=== PATIENT | male | born 1950 | race Two or more races ===

== ENCOUNTER → 2016-10-19 | Outpatient (CLI) | payer MEDICARE ==
--- NOTE | 2016-10-23 23:57 | ECWPNPC ---
PATIENT NAME: REFUGIO REICH : 1950 GENDER: MALE MRN: VISIT DATE: 10/19/2016 DISCHARGE DATE: 10/19/16 1639 VISIT LOCKED DATE TIME: PHYSICIAN: EFFIE ROMAN RESOURCE: EFFIE ROMAN REASON FOR APPOINTMENT 1. NECK PAIN HISTORY OF PRESENT ILLNESS NEW PATIENT CONSULT: WHEN DID YOUR PAIN FIRST START? . BRIEFLY DESCRIBE HOW YOUR PAIN STARTED? . HOW DOES YOUR PAIN CHANGE WITH TIME? . DOES YOUR PAIN AWAKEN YOU FROM SLEEP? . HOW MANY HOURS OF SLEEP DO YOU NORMALLY GET? . ANY DIAGNOSTIC TESTING? . FACILITY WHERE TESTS WERE DONE? ____. PAIN TREATMENT TREATMENT YES CANCER HAVE YOU EVER HAD ANY TYPE OF CANCER?NO NO. 66 YEAR OLD MALE PATIENT WITH HISTORY OF CHRONIC NECK PAIN. PATIENT DESCRIBES THE PAIN ACHING, TENDER, SORE, WITH THE PAIN COMING AND GOING WITH A PAIN SCORE OF 6/10. PATIENT STATES THAT THE PAIN STARTED ROUGHLY 3 MONTHS AGO AND HE DID NOT HAVE AN ACCIDENT. PATIENT REPORTS THAT BOTH OF HIS HANDS GO NUMB AT TIMES AND GETS HEADACHES FROM THE CHRONIC NECK PAIN. AT THIS TIME THE PATIENT REPORTS GETTING A HEADACHE ALMOST EVERYDAY. PATIENT IS CURRENTLY NOT USING ANYTHING FOR PAIN MANAGEMENT AT THIS TIME. MR. REICH STATES THAT ANY TYPE OF MOVEMENT INCREASES THE PAIN IN HIS CERVICAL AREA. PATIENT DENIES UNEXPLAINABLE WEIGHT LOSS, FEVER, CHILLS, NEW CHANGES ON HIS URINARY OR BOWEL CONTROL. PAIN SCREENING: PATIENT HAS A COMPLAINT OF ACUTE OR CHRONIC PAIN YES FALL RISK SCREENING: SCREENING :NO FALLS IN THE PAST YEAR PATEL INVENTORY: QUESTIONNAIRE ASSESSEDTBD SCORE VALUE CALCULATED TBD CURRENT MEDICATIONS TAKING METFORMIN HCL 1000 MG TABLET 1 TABLET WITH MEALS ORALLY TWICE A DAY TAKING LISINOPRIL 40 MG TABLET ORALLY ONCE DAILY TAKING OMEPRAZOLE 40 MG CAPSULE DELAYED RELEASE 1 CAPSULE ORALLY ONCE A DAY TAKING CLOPIDOGREL BISULFATE 75 MG TABLET 1 TABLET ORALLY ONCE A DAY TAKING GLYBURIDE 1.25 MG TABLET 1 TABLET WITH BREAKFAST OR THE FIRST MAIN MEAL OF THE DAY ORALLY ONCE A DAY TAKING VITAMIN D-3 1000 UNIT CAPSULE 1 CAPSULE ORALLY ONCE A DAY TAKING VITAMIN C 1000 MG TABLET CHEWABLE 1 TABLET ORALLY ONCE A DAY TAKING POTASSIUM GLUCONATE 595 MG TABLET ORALLY DAILY TAKING GAS-X 125 MG CAPSULE 1 CAPSULE AFTER MEALS AND AT BEDTIME NEEDED ORALLY FOUR TIMES A DAY TAKING ALLERGY RELIEF 10 MG TABLET 1 TABLET ORALLY ONCE A DAY TAKING PROAIR HFA 108 (90 BASE) MCG/ACT AEROSOL SOLUTION 2 PUFFS NEEDED INHALATION EVERY 4 HRS TAKING QVAR 40 MCG/ACT AEROSOL SOLUTION 1 PUFF INHALATION TWICE A DAY TAKING AMLODIPINE BESYLATE 2.5 MG TABLET 1 TABLET ORALLY ONCE A DAY MEDICATION LIST REVIEWED AND RECONCILED WITH THE PATIENT PAST MEDICAL HISTORY NO MEDICAL HISTORY. ALLERGIES ENVIRONMENTAL ALLERGIES SURGICAL HISTORY NO SURGICAL HISTORY DOCUMENTED. FAMILY HISTORY NO FAMILY HISTORY DOCUMENTED. SOCIAL HISTORY GENERAL: PAIN CLINIC PFS, CLERGY, PUBLIC HEALTH REFERRALS CLERGY REFERRAL NEEDED?NO WAS THE PROVIDER NOTIFIED OF ANY PERTINENT INFO?NO PFS REFERRAL NEEDED?NO PUBLIC HEALTH REFERRAL NEEDED?NO PSYCHOLOGICAL HX TREATMENTNO ALCOHOL OR DRUG TREATMENTNO PATIENT: ____. ADVANCED DIRECTIVES HEALTH CARE PROXY?NO POWER OF WEB OPERATIONS ADMINISTRATOR?NO SCREENING/ASSESSMENT TOOL NUTRITION ASSESSEDYES ARE YOU ON ANY SPECIAL DIET?NO ANY SIGNIFICANT CHANGES RELATED TO EATING, WEIGHT GAIN/LOSS, OR BOWEL HABITS?NO IF YES, IS YOUR PRIMARY CARE PROVIDER AWARE OF THIS?NO SPECIAL NEEDS LEVEL OF CARE? SELF, GLASSES: NO, CONTACTS: NO, HEARING AIDS: NO, DENTURES: NO, WALKER: NO, CANE: NO, WHEELCHAIR: NO, REFERRALS NEEDED: NO. TOBACCO USE ARE YOU A:NONSMOKER CAFFEINE CAFFEINE USE?NO RECREATIONAL DRUG USE DRUG USE?NO HOSPITALIZATION/MAJOR DIAGNOSTIC PROCEDURE NO HOSPITALIZATION HISTORY. REVIEW OF SYSTEMS CONSTITUTIONAL: ANY CHANGE IN YOUR MEDICAL CONDITION? NO . CHILLS NO . FEVER NO . INFECTION: DO YOU HAVE NEW INFECTIONS? NO . DO YOU HAVE HISTORY OF MRSA? NO . MUSCULOSKELETAL: ANY NEW PATTERNS OF PAIN OR NUMBNESS? NO . SYTEMIC LUPUS NO . GASTROENTEROLOGY: ANY NEW CHANGE IN BOWEL CONTROL? NO . BARRETTS ESOPHAGUS NO . CIRRHOSIS NO . HEPATITIS NO . LIVER FAILURE NO . ACID REFLUX YES, TAKES PRILOSEC . UNEXPLAINED WEIGHT LOSS NO . GENITOURINARY: ANY NEW CHANGE IN BLADDER CONTROL? NO . IS THERE A CHANCE YOU COULD BE ? NO . HEMATOLOGY/LYMPH: DO YOU TAKE ANY BLOOD THINNERS? (FOR EXAMPLE- COUMADIN, PLAVIX, AGGRENOX, PLATEL, PRADAXA, OR XARELTO) YES, PLAVIX . WHEN WAS YOUR LAST DOSE? DATE: . LOW PLATELET COUNT NO . SICKLE CELL DISEASE NO . VON WILLIEBRANDS NO . FACTOR V LEIDEN NO . THALLASEMIA NO . ANEMIA NO . EASY BRUISING NO . NEUROLOGY: HAVE YOU FALLEN IN THE PAST 6 MONTHS? NO . ANY NEW EXTREMITY NUMBNESS OR WEAKNESS? YES, HANDS . HEAD INJURY NO . DEMENTIA NO . CEREBRAL PALSY NO . MULTIPLE SCLEROSIS NO . DIZZINESS NO . HEADACHE INTERMITTENT, OCCIPITAL, POUNDING, INFREQUENT . STROKES YES, TIA 12/31/14 . VERTIGO NO . CARDIOLOGY: DO YOU HAVE A PACEMAKER OR DEFIBRILLATOR? NO . ANGINA NO . HEART ATTACK NO . HEART SURGERY NO . CONGESTIVE HEART FAILURE/FLUID OVERLOAD NO . CHEST PAIN NO . HIGH BLOOD PRESSURE YES, ON MEDICATION(S) . IRREGULAR HEART BEAT NO . RESPIRATORY: HAVE YOU BEEN SICK IN THE PAST WEEK? YES . FEVER YES . FLU LIKE SYMPTOMS? YES . CPAP NO . BYPAP NO . ASTHMA YES . EMPHYSEMA NO . CHRONIC LUNG DISEASES NO . SHORTNESS OF BREATH ON EXERTION YES . DO YOU USE ANY TYPE OF TOBACCO (SMOKE, SMOKELESS, CHEW)? NO . COUGH NO . SNORING NO . INTEGUMENTARY: DO YOU HAVE ANY RASHES OR OPEN SORES? YES . ALLERGIC/IMMUNO: ARE YOU ALLERGIC TO SHELLFISH OR IV DYE? NO . ANY NEW ALLERGIES? NO . PSYCHIATRIC: DO YOU HAVE THOUGHTS OF HURTING YOURSELF OR SOMEONE ELSE? NO . ARE YOU ABUSED, NEGLECTED, OR IN AN UNSAFE ENVIRONMENT? NO . ENDOCRINOLOGY: ARE YOU DIABETIC? YES . THYROID DISORDER NO . OTHER: DO YOU NEED ANY PRESCRIPTIONS? NO . IF YES, PLEASE LIST: ____ . ANY NEW PROBLEMS WITH YOUR MEDICATIONS? NO . WHEN DID YOU LAST EAT? ____ . WHEN DID YOU LAST DRINK? ____ . WHAT DID YOU LAST DRINK? ____ . NAME OF PERSON DRIVING YOU HOME? ____ . DO YOU HAVE ANY OTHER QUESTIONS OR CONCERNS NO . REVIEWED BY: PROVIDER: EFFIE ROMAN MD . VITAL SIGNS WT 208 LBS, HT 68 IN, BMI 31.62 INDEX, BP 169/87 MM HG, RR 16 /MIN, REVIEWED BY: VD. EXAMINATION : PATIENT IS ALERT O X 3 AND COOPERATIVE. TENDERNESS IN THE CERVICAL AREA AND PARASPINAL MUSCLE GROUP. BANDS OF TISSUE, RESTRICTION OF MOVEMENT AND PRESENCE OF TRIGGER POINTS IN THE CERVICAL AREA. PATIENT IS ABLE TO EXTEND THE NECK WITH ACHINESS. SIGNIFICANT PAIN WITH TILTING HEAD TO THE LEFT. PATIENT ABLE TO ABDUCT ARMS ABOVE SHOULDER LEVEL. MRI OF THE CERVICAL SPINE DONE ON 09/28/16 SHOWS MULTIPLE DISC BULGES WITH SPONDYLOSIS ALONG WITH A DISC EXTRUSION AT C6-C7. 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 REICH'S PAIN MANAGEMENT CASE. AT HIS TIME THE PATIENT WILL BEGIN TO USE TIZANIDINE TO SEE IF IT WILL AID WITH THE MUSCLE CRAMPS IN THE CERVICAL AREA. PATIENT WAS ADVISED TO STOP MEDICATION IS HE HAS ANY ADVERSE SIDE EFFECTS AND TO BE AWARE THAT THE MEDICATION MAY MAKE HIM TIRED. I WOULD LIKE TO REFER THE PATIENT TO DR. DHILLON FOR A SURGICAL CONSULT. IN THE MEANTIME DUE TO THE BANDS OF TISSUE IN THE CERVICAL AREA I BELIEVE THE PATIENT WOULD BENEFIT FROM TRIGGER POINT INJECTIONS IN THE CERVICAL AREA. PATIENT IS A CANDIDATE FOR LUMBAR FACET BLOCKS WELL BUT WE WOULD NEED TO OBTAIN A CLEARANCE TO STOP THE PATIENT'S BLOOD THINNER. WE DISCUSSED THE RISKS, BENEFITS, AND ALTERNATIVES OF THE INJECTION AND THE PATIENT WOULD LIKE TO PROCEED AT THIS TIME. INSTRUCTIONS WERE GIVEN, QUESTIONS WERE ANSWERED, PATIENT REPORTS UNDERSTANDING AND AGREES WITH THE PLAN. I, JACKSON NEIL, DOCUMENTED THE ABOVE INFORMATION ACTING A SCRIBE FOR DR. ROMAN. I HAVE REVIEWED THE ABOVE DOCUMENT, WRITTEN BY JACKSON MOTTA AND I VERIFY THAT IT IS ACCURATE. DEAR DR. FLYNN:THANK YOU FOR YOUR KIND REFERRAL OF MR. REICH. YOU WANT TO DISCUSS HER CASE WITH ME PLEASE CALL ME AT THE PAIN CENTER AT [phone]. SINCERELY,EFFIE ROMAN, [facility]. OTHERS START TIZANIDINE HCL TABLET, 2 MG, 1 TABLET NEEDED, ORALLY FOR SPASMS AND PAIN, Q 6 HRS MDD3, 30 DAY(S), 75, REFILLS 1 PREVENTIVE MEDICINE PAIN CLINIC TEACHING: PROCEDURE TEACHING PATIENT DECLINED PRINTED INFORMATION ON TPI STATING HE HAS HAD THEM IN THE PAST SO HE IS FAMILIAR WITH IT.. PROCEDURE CODES G8427 DOC MEDS VERIFIED W/PT OR RE G8730 PAIN ASSESS POS TOOL F/U PLAN DOC FOLLOW UP TPI AFTER APPROVAL ELECTRONICALLY SIGNED BY EFFIE ROMAN MD ON 10/23/2016 AT 08:22 PM EST DISCLAIMER : THIS IS A VISIT SUMMARY EXTRACTED FROM THE [employer] CHART. IT IS NOT A COPY OF THE [employer] PROGRESS NOTE. MTDD
== END ==
LOC: M PAIN 13:20
PROVIDERS: ATTEND Anesthesiology
DX: M79.1 Myalgia (principal); M50.023 Cervical disc disorder at C6-C7 level with myelopathy; Z79.899 Other long term (current) drug therapy; Z79.84 Long term (current) use of oral hypoglycemic drugs; Z91.09 Other allergy status, other than to drugs and biological substances

== ENCOUNTER → 2016-10-26 | Outpatient (CLI) | payer MEDICARE, BC ==
[~2016-10-26] MED LIST: BUPIVACAINE HCL 0.25% 10 ML VIAL As Ordered ONE; BUPIVACAINE HCL 0.25% 30 ML VIAL As Ordered ONE; TRIAMCINOLONE ACETONIDE SUSP 40 MG/ML VIAL (J3301) As Ordered ONE
--- NOTE | 2016-10-28 23:42 | ECWPNPC ---
PATIENT NAME: REFUGIO REICH : 1950 GENDER: MALE VISIT DATE: 10/26/2016 DISCHARGE DATE: 10/26/16 1106 VISIT LOCKED DATE TIME: PHYSICIAN: EFFIE ROMAN RESOURCE: EFFIE ROMAN REASON FOR APPOINTMENT 1. TPI HISTORY OF PRESENT ILLNESS HISTORY OF PRESENT ILLNESS: PAIN THE PATIENT DESCRIBES THE PAIN... FALL RISK SCREENING: SCREENING :NO FALLS IN THE PAST YEAR CURRENT MEDICATIONS TAKING TIZANIDINE HCL 2 MG TABLET 1 TABLET NEEDED ORALLY FOR SPASMS AND PAIN Q 6 HRS MDD3, NOTES: 10/25/162099 TAKING METFORMIN HCL 1000 MG TABLET 1 TABLET WITH MEALS ORALLY TWICE A DAY, NOTES: 10/25/162099 TAKING LISINOPRIL 40 MG TABLET ORALLY ONCE DAILY, NOTES: 10/25/162099 TAKING OMEPRAZOLE 40 MG CAPSULE DELAYED RELEASE 1 CAPSULE ORALLY ONCE A DAY, NOTES: 10/26/16499 TAKING CLOPIDOGREL BISULFATE 75 MG TABLET 1 TABLET ORALLY ONCE A DAY, NOTES: 10/19/16 TAKING GLYBURIDE 1.25 MG TABLET 1 TABLET WITH BREAKFAST OR THE FIRST MAIN MEAL OF THE DAY ORALLY ONCE A DAY, NOTES: 10/25/162099 TAKING VITAMIN D-3 1000 UNIT CAPSULE 1 CAPSULE ORALLY ONCE A DAY, NOTES: 10/26/16499 TAKING POTASSIUM GLUCONATE 595 MG TABLET ORALLY DAILY, NOTES: 10/25/162099 TAKING GAS-X 125 MG CAPSULE 1 CAPSULE AFTER MEALS AND AT BEDTIME NEEDED ORALLY FOUR TIMES A DAY, NOTES: 10/25/162099 TAKING ALLERGY RELIEF 10 MG TABLET 1 TABLET ORALLY ONCE A DAY, NOTES: 10/26/16499 TAKING PROAIR HFA 108 (90 BASE) MCG/ACT AEROSOL SOLUTION 2 PUFFS NEEDED INHALATION EVERY 4 HRS, NOTES: NONE RECENT TAKING QVAR 40 MCG/ACT AEROSOL SOLUTION 1 PUFF INHALATION TWICE A DAY, NOTES: 10/26/16499 TAKING AMLODIPINE BESYLATE 2.5 MG TABLET 1 TABLET ORALLY ONCE A DAY, NOTES: 10/25/162099 NOT-TAKING VITAMIN C 1000 MG TABLET CHEWABLE 1 TABLET ORALLY ONCE A DAY MEDICATION LIST REVIEWED AND RECONCILED WITH THE PATIENT ALLERGIES ENVIRONMENTAL ALLERGIES SOCIAL HISTORY GENERAL: TOBACCO USE ARE YOU A:NONSMOKER LEARNING BARRIERS / SPECIAL NEEDS ORIENTED TO PLAN OF CARE: PATIENT, PAIN MANAGEMENT PATIENT, ORIENTED TO PLAN OF CARE: PATIENT, PAIN MANAGEMENT PATIENT. NEW PATIENT PAIN DIARY TODAY'S VISITNOTES FROM 0-10, WHAT LEVEL IS YOUR PAIN TODAY?0 PAIN CLINIC PFS, CLERGY, PUBLIC HEALTH REFERRALS PFS REFERRAL NEEDED?NO CLERGY REFERRAL NEEDED?NO PUBLIC HEALTH REFERRAL NEEDED?NO WAS THE PROVIDER NOTIFIED OF ANY PERTINENT INFO?NO PFS REFERRAL NEEDED?NO CLERGY REFERRAL NEEDED?NO PUBLIC HEALTH REFERRAL NEEDED?NO WAS THE PROVIDER NOTIFIED OF ANY PERTINENT INFO?NO REVIEW OF SYSTEMS CONSTITUTIONAL: ANY CHANGE IN YOUR MEDICAL CONDITION? NO . CHILLS NO . FEVER NO . INFECTION: DO YOU HAVE NEW INFECTIONS? NO . DO YOU HAVE HISTORY OF MRSA? NO . MUSCULOSKELETAL: ANY NEW PATTERNS OF PAIN OR NUMBNESS? NO . GASTROENTEROLOGY: ANY NEW CHANGE IN BOWEL CONTROL? NO . GENITOURINARY: ANY NEW CHANGE IN BLADDER CONTROL? NO . IS THERE A CHANCE YOU COULD BE ? NO . HEMATOLOGY/LYMPH: DO YOU TAKE ANY BLOOD THINNERS? (FOR EXAMPLE- COUMADIN, PLAVIX, AGGRENOX, PLATEL, PRADAXA, OR XARELTO) YES, CLOPIDOGREL . WHEN WAS YOUR LAST DOSE? DATE: TIME: 10/19/16 . NEUROLOGY: HAVE YOU FALLEN IN THE PAST 6 MONTHS? NO . ANY NEW EXTREMITY NUMBNESS OR WEAKNESS? NO . CARDIOLOGY: DO YOU HAVE A PACEMAKER OR DEFIBRILLATOR? NO . RESPIRATORY: HAVE YOU BEEN SICK IN THE PAST WEEK? YES LOW GRADE FEVER, CHILLS ACHES AND PAINS ALL OVER THIS PAST WEEK. DR. ROMAN AWARE . FEVER NO . FLU LIKE SYMPTOMS? NO . COUGH YES, OCC. RAISING YELLOW MUCUS . INTEGUMENTARY: DO YOU HAVE ANY RASHES OR OPEN SORES? NO . ALLERGIC/IMMUNO: ARE YOU ALLERGIC TO SHELLFISH OR IV DYE? NO . ANY NEW ALLERGIES? NO . PSYCHIATRIC: DO YOU HAVE THOUGHTS OF HURTING YOURSELF OR SOMEONE ELSE? NO . ARE YOU ABUSED, NEGLECTED, OR IN AN UNSAFE ENVIRONMENT? NO . ENDOCRINOLOGY: ARE YOU DIABETIC? YES FSBS THIS A.M. 123 . OTHER: DO YOU NEED ANY PRESCRIPTIONS? NO . IF YES, PLEASE LIST: ____ . ANY NEW PROBLEMS WITH YOUR MEDICATIONS? NO . WHEN DID YOU LAST EAT? ____10/25/16 1700 . WHEN DID YOU LAST DRINK? ____10/26/16 0500 . WHAT DID YOU LAST DRINK? 8 OZ OF WATER, 8 OZ GA . NAME OF PERSON DRIVING YOU HOME? ____WIFE, AMY . DO YOU HAVE ANY OTHER QUESTIONS OR CONCERNS NO . REVIEWED BY: PROVIDER: . VITAL SIGNS WT 203.8 LBS, HT 68 IN, BMI 30.98 INDEX, BP 146/80 MM HG, HR 82 /MIN, RR 16 /MIN, TEMP 97.4 F, OXYGEN SAT % 98, NA INITIALS TL 0950, REVIEWED BY: AD. ASSESSMENTS MYALGIA - M79.1 (PRIMARY) PROCEDURES PN TRIGGER POINT INJECTION WITH STEROIDS PRE PROCEDURE DIAGNOSIS 1. MYALGIA 2. PAIN AT BILATERAL CERVICAL AREA AND BILATERAL NECK AREA POST PROCEDURE DIAGNOSIS 1. MYALGIA 2. PAIN AT BILATERAL CERVICAL AREA AND BILATERAL SHOULDER AREA PROCEDURE TRIGGER POINT INJECTION AT BILATERAL CERVICAL AREA AND BILATERAL SHOULDER AREA SURGEON DR. EFFIE ROMAN [employer]OP MANAGER NONE ANESTHESIA LOCAL PRE PROCEDURE NOTE THE PATIENT HAS A HISTORY OF CHRONIC PAIN AT THE RIGHT AND LEFT CERVICAL AREA AND RIGHT AND LEFT SHOULDER AREA. I EVALUATE THE PATIENT AND REVIEWED THE CHART. THERE IS EVIDENCE OF BANDS OF TISSUE WITH RESTRICTION OF MOVEMENT AND PRESENCE OF TRIGGER POINT AT THE AFFECTED AREA. I WENT OVER THE RISKS, ALTERNATIVES, AND BENEFITS ASSOCIATED WITH THIS PROCEDURE. THE PATIENT WOULD LIKE TO PROCEED AND GIVE CONSENT TO PERFORMED THE PROCEDURE. THE PATIENT DENIES UNEXPLAINABLE WEIGHT LOSS, FEVER, CHILLS, OR NEW CHANGES IN URINARY OR BOWEL CONTROL DESCRIPTION OF PROCEDURE THE PATIENT WAS BROUGHT TO THE PROCEDURE ROOM AND PLACED IN THE SITTING POSITION. THE AREA WAS CLEANED WITH ALCOHOL. THE PROCEDURE WAS DONE USING ASEPTIC STERILE TECHNIQUE. I CHECKED LATERALITY AND THE LEVEL WHERE THE PROCEDURE WAS GOING TO BE PERFORMED WITH THE PATIENT AND THE SUPPORTING STAFF AT THE MOMENT OF THE TIME OUT IN THE PROCEDURE ROOM. USING A 25-GAUGE NEEDLE, TRIGGER POINTS WERE INJECTED AT THE RIGHT AND LEFT CERVICAL AREA AND RIGHT AND LEFT SHOULDER AREA WITH A TOTAL OF 40 ML OF BUPIVACAINE 0.25% AND KENALOG 40 MG. THERE WAS NO EVIDENCE OF BLOOD, PARESTHESIA OR CEREBROSPINAL FLUID DURING THE PROCEDURE. THE PATIENT WAS SENT TO THE RECOVERY ROOM. THE PATIENT WAS MOVING THE EXTREMITIES AND DOING WELL. THERE WAS NO COMPLICATION DURING THE PROCEDURE POST PROCEDURE NOTE THE PATIENT WILL BE SEEN IN A FOLLOW UP IN THE NEXT FEW WEEKS. INSTRUCTIONS WERE GIVEN, QUESTIONS WERE ANSWERED, AND THE PATIENT EXPRESSED UNDERSTANDING AND AGREES WITH THE PLAN. I, AJCKSON NEIL, DOCUMENTED THE ABOVE INFORMATION ACTING A SCRIBE FOR DR. ROMAN. I, DR. ROMAN, HAVE REVIEWED THE ABOVE DOCUMENT, SCRIBED BY JACKSON NEIL, AND I VERIFY THAT IT IS ACCURATE PROCEDURE CODES 04538 INJECT TRIGGER POINTS 3/> FOLLOW UP 3 WEEKS ELECTRONICALLY SIGNED BY EFFIE ROMAN MD ON 10/28/2016 AT 01:39 PM EST DISCLAIMER : THIS IS A VISIT SUMMARY EXTRACTED FROM THE [employer] CHART. IT IS NOT A COPY OF THE [employer] PROGRESS NOTE. MTDD
== END ==
LOC: M PAIN 10:00
PROVIDERS: ATTEND Anesthesiology
DX: G89.29 Other chronic pain (principal); M79.1 Myalgia; M54.2 Cervicalgia; M25.511 Pain in right shoulder; M25.512 Pain in left shoulder; E11.9 Type 2 diabetes mellitus without complications; J30.89 Other allergic rhinitis; Z79.01 Long term (current) use of anticoagulants; Z79.84 Long term (current) use of oral hypoglycemic drugs; Z79.899 Other long term (current) drug therapy
CPT/HCPCS: 20553; J3301

== ENCOUNTER → 2016-11-11 | Outpatient (CLI) | payer MEDICARE, BC ==
--- NOTE | 2016-11-12 00:27 | ECWPNPC ---
PATIENT NAME: REFUGIO REICH : 1950 GENDER: MALE VISIT DATE: 11/11/2016 DISCHARGE DATE: 11/11/16 1206 VISIT LOCKED DATE TIME: PHYSICIAN: KATHIA ARTEAGA RESOURCE: KATHIA ARTEAGA REASON FOR APPOINTMENT 1. POST PROCEDURE HISTORY OF PRESENT ILLNESS HISTORY OF PRESENT ILLNESS: HERE FOR POST PROCEDURE F/U.HAD TPI IN NECK ON10-26-16.REPORTS ONE WEEK OF IMPROVEMENT THEN PAIN HAS RETURNED TO BASELINE.DESCRIBES INTERMITTENT SEVERE NECK PAIN THAT RADIATES INTO HEADACHE.RATING PAIN VAS 8/10.DESCRIBES PAIN ACHING,THROBBING AND SORE.TRIALED ON ZANAFLEX ONE MOS. AGO AND STATES IT DIDNT HELP.SAW MIMA CORTÉS AT [facility] PER DR. ABEL ARCE WHO FEELS ITS MAINLY ARTHRITIC IN NATURE AND REFERRED BACK TO [place] TO CONSIDER CERVICAL FACET BLOCKS. FALL RISK SCREENING: SCREENING :NO FALLS IN THE PAST YEAR CURRENT MEDICATIONS TAKING TIZANIDINE HCL 2 MG TABLET 1 TABLET NEEDED ORALLY FOR SPASMS AND PAIN Q 6 HRS MDD3, NOTES: 10/25/162099 TAKING METFORMIN HCL 1000 MG TABLET 1 TABLET WITH MEALS ORALLY TWICE A DAY, NOTES: 10/25/162099 TAKING LISINOPRIL 40 MG TABLET ORALLY ONCE DAILY, NOTES: 10/25/162099 TAKING OMEPRAZOLE 40 MG CAPSULE DELAYED RELEASE 1 CAPSULE ORALLY ONCE A DAY, NOTES: 10/26/16499 TAKING CLOPIDOGREL BISULFATE 75 MG TABLET 1 TABLET ORALLY ONCE A DAY, NOTES: 10/19/16 TAKING GLYBURIDE 1.25 MG TABLET 1 TABLET WITH BREAKFAST OR THE FIRST MAIN MEAL OF THE DAY ORALLY ONCE A DAY, NOTES: 10/25/162099 TAKING VITAMIN D-3 1000 UNIT CAPSULE 1 CAPSULE ORALLY ONCE A DAY, NOTES: 10/26/16 050 TAKING POTASSIUM GLUCONATE 595 MG TABLET ORALLY DAILY, NOTES: 10/25/162099 TAKING GAS-X 125 MG CAPSULE 2 CAPSULE AFTER MEALS AND AT BEDTIME NEEDED ORALLY DAILY, NOTES: 10/25/162099 TAKING ALLERGY RELIEF 10 MG TABLET 1 TABLET ORALLY ONCE A DAY, NOTES: 10/26/16 050 TAKING PROAIR HFA 108 (90 BASE) MCG/ACT AEROSOL SOLUTION 2 PUFFS NEEDED INHALATION EVERY 4 HRS, NOTES: NONE RECENT TAKING QVAR 40 MCG/ACT AEROSOL SOLUTION 1 PUFF INHALATION TWICE A DAY, NOTES: 10/26/16 0500 TAKING AMLODIPINE BESYLATE 2.5 MG TABLET 1 TABLET ORALLY ONCE A DAY, NOTES: 10/25/16 2100 NOT-TAKING VITAMIN C 1000 MG TABLET CHEWABLE 1 TABLET ORALLY ONCE A DAY MEDICATION LIST REVIEWED AND RECONCILED WITH THE PATIENT ALLERGIES ENVIRONMENTAL ALLERGIES SOCIAL HISTORY GENERAL: TOBACCO USE ARE YOU A:NONSMOKER LEARNING BARRIERS / SPECIAL NEEDS ORIENTED TO PLAN OF CARE: PATIENT, PAIN MANAGEMENT PATIENT, ORIENTED TO PLAN OF CARE: PATIENT, PAIN MANAGEMENT PATIENT. NEW PATIENT PAIN DIARY TODAY'S VISITNOTES FROM 0-10, WHAT LEVEL IS YOUR PAIN TODAY?0 PAIN CLINIC PFS, CLERGY, PUBLIC HEALTH REFERRALS PFS REFERRAL NEEDED?NO CLERGY REFERRAL NEEDED?NO PUBLIC HEALTH REFERRAL NEEDED?NO WAS THE PROVIDER NOTIFIED OF ANY PERTINENT INFO?NO PFS REFERRAL NEEDED?NO CLERGY REFERRAL NEEDED?NO PUBLIC HEALTH REFERRAL NEEDED?NO WAS THE PROVIDER NOTIFIED OF ANY PERTINENT INFO?NO REVIEW OF SYSTEMS CONSTITUTIONAL: ANY CHANGE IN YOUR MEDICAL CONDITION? NO . RECENT ILLNESS DENIES . CHILLS NO . FEVER NO . WEIGHT LOSS DENIES . INFECTION: DO YOU HAVE NEW INFECTIONS? NO . DO YOU HAVE HISTORY OF MRSA? NO . MUSCULOSKELETAL: ANY NEW PATTERNS OF PAIN OR NUMBNESS? NO . GASTROENTEROLOGY: ANY NEW CHANGE IN BOWEL CONTROL? NO . GENITOURINARY: ANY NEW CHANGE IN BLADDER CONTROL? NO . IS THERE A CHANCE YOU COULD BE ? NO . HEMATOLOGY/LYMPH: DO YOU TAKE ANY BLOOD THINNERS? (FOR EXAMPLE- COUMADIN, PLAVIX, AGGRENOX, PLATEL, PRADAXA, OR XARELTO) YES PLAVIX . WHEN WAS YOUR LAST DOSE? DATE: TIME: . NEUROLOGY: HAVE YOU FALLEN IN THE PAST 6 MONTHS? NO . ANY NEW EXTREMITY NUMBNESS OR WEAKNESS? NO . CARDIOLOGY: DO YOU HAVE A PACEMAKER OR DEFIBRILLATOR? NO . CHEST PAIN DENIES . SHORTNESS OF BREATH DENIES . RESPIRATORY: HAVE YOU BEEN SICK IN THE PAST WEEK? NO . FEVER NO . FLU LIKE SYMPTOMS? NO . COUGH NO, DENIES . SHORTNESS OF BREATH DENIES . INTEGUMENTARY: DO YOU HAVE ANY RASHES OR OPEN SORES? NO . ALLERGIC/IMMUNO: ARE YOU ALLERGIC TO SHELLFISH OR IV DYE? NO . ANY NEW ALLERGIES? NO . PSYCHIATRIC: DO YOU HAVE THOUGHTS OF HURTING YOURSELF OR SOMEONE ELSE? NO . ARE YOU ABUSED, NEGLECTED, OR IN AN UNSAFE ENVIRONMENT? NO . ENDOCRINOLOGY: ARE YOU DIABETIC? YES . OTHER: DO YOU NEED ANY PRESCRIPTIONS? NO . IF YES, PLEASE LIST: ____ . ANY NEW PROBLEMS WITH YOUR MEDICATIONS? NO . WHEN DID YOU LAST EAT? ____ . WHEN DID YOU LAST DRINK? ____ . WHAT DID YOU LAST DRINK? ____ . NAME OF PERSON DRIVING YOU HOME? ____ . DO YOU HAVE ANY OTHER QUESTIONS OR CONCERNS YES PAIN IS RECURRING IN NECK WITH HEADACHES ALSO. . REVIEWED BY: PROVIDER: KATHIA ESPINOZA . VITAL SIGNS WT 202.4 LBS, HT 68 IN, BMI 30.77 INDEX, BP 155/71 MM HG, HR 78 /MIN, RR 16 /MIN, TEMP 97.9 F, OXYGEN SAT % 95%, NA INITIALS SC 11:09, REVIEWED BY: MLF. EXAMINATION GENERAL EXAMINATION: LUNGS:LUNG SOUNDS ARE CLEAR. HEART:HEART RATE REGULAR. MUSCULOSKELETAL:*, MUSCLE STRENGTH TESTING 5/5 BILATERAL UPPER EXTREMITIES.PALPATION: POSITIVE FOR PAIN OVER C SPINE. POSITIVE FOR PAIN OVER C PARASPINALS, SPECIFIC TENDERNESS OVER C2/3-C3/4 CERVICAL FACET REGION WITH PALPATION.. DIAGNOSTIC:MRI [id number].. 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 PREVENTIVE MEDICINE PAIN CLINIC TEACHING: MEDICATIONS PRINTED HANDOUT GIVEN/REVIEWED WITH PT FOR ROBAXIN. PROCEDURE CODES FA211 ESTABILISHED PATIENT [facility] FACILITY CHARGE G8730 PAIN ASSESS POS TOOL F/U PLAN DOC G8427 DOC MEDS VERIFIED W/PT OR RE DISPOSITION & COMMUNICATION FOLLOW UP 2WKS POST (REASON: SEND STOP PLAVIX TO DR. FLYNN-STOP PLAVIX X7 DAYS AND SCHEDULE DAY 8BILAT.C3/4-4/5) ELECTRONICALLY SIGNED BY ALEXIS INGRAM ON 11/11/2016 AT 01:39 PM EST DISCLAIMER : THIS IS A VISIT SUMMARY EXTRACTED FROM THE [employer] CHART. IT IS NOT A COPY OF THE [employer] PROGRESS NOTE. VICKY
== END ==
LOC: M PAIN 11:20
PROVIDERS: ATTEND Nurse Practitioner Family
DX: Z09 Encounter for follow-up examination after completed treatment for conditions other than malignant neoplasm (principal); G89.29 Other chronic pain; M47.22 Other spondylosis with radiculopathy, cervical region; M79.1 Myalgia; J30.89 Other allergic rhinitis; E11.9 Type 2 diabetes mellitus without complications; Z79.01 Long term (current) use of anticoagulants; Z79.84 Long term (current) use of oral hypoglycemic drugs; Z79.899 Other long term (current) drug therapy

== ENCOUNTER → 2017-01-12 | Outpatient (CLI) | payer MEDICARE, BC ==
--- NOTE | 2017-01-13 00:21 | ECWPNPC ---
PATIENT NAME: REFUGIO REICH : 1950 GENDER: MALE VISIT DATE: 01/12/2017 DISCHARGE DATE: 01/12/17 0944 VISIT LOCKED DATE TIME: PHYSICIAN: KATHIA ARTEAGA RESOURCE: KATHIA ARTEAGA REASON FOR APPOINTMENT 1. POST INJ HISTORY OF PRESENT ILLNESS HISTORY OF PRESENT ILLNESS: HERE FOR POST PROCEDURE F/U.HAD BILATERAL CERVICAL C5/6-C6/7 BLOCKS ON 12-26-16.REPORTS 100 % IMPROVEMENT IN PAIN THAT CONTINUES TODAY.RATING AIN VAS 0/10.REPORTING LESS HEADAHE PAIN.HAS NOT NEEDED TO TAKE ROBAXIN.STATES ROBAXIN WAS VERY HELPFUL WITH SEVERE HEADACHE PAIN. FALL RISK SCREENING: SCREENING :NO FALLS IN THE PAST YEAR CURRENT MEDICATIONS TAKING METFORMIN HCL 1000 MG TABLET 1 TABLET WITH MEALS ORALLY TWICE A DAY TAKING LISINOPRIL 40 MG TABLET ORALLY ONCE DAILY TAKING OMEPRAZOLE 40 MG CAPSULE DELAYED RELEASE 1 CAPSULE ORALLY ONCE A DAY TAKING CLOPIDOGREL BISULFATE 75 MG TABLET 1 TABLET ORALLY ONCE A DAY TAKING GLYBURIDE 1.25 MG TABLET 1 TAB ORALLY BID TAKING VITAMIN D-3 1000 UNIT CAPSULE 1 CAPSULE ORALLY BID TAKING POTASSIUM GLUCONATE 595 MG TABLET ORALLY DAILY TAKING GAS-X 125 MG CAPSULE 2 CAPSULE AFTER MEALS AND AT BEDTIME NEEDED ORALLY DAILY TAKING ALLERGY RELIEF 10 MG TABLET 1 TABLET ORALLY ONCE A DAY TAKING PROAIR HFA 108 (90 BASE) MCG/ACT AEROSOL SOLUTION 2 PUFFS NEEDED INHALATION EVERY 4 HRS TAKING QVAR 40 MCG/ACT AEROSOL SOLUTION 1 PUFF INHALATION TWICE A DAY TAKING AMLODIPINE BESYLATE 2.5 MG TABLET 1 TABLET ORALLY ONCE A DAY TAKING VITAMIN B-12 500 MCG TABLET 2 TABLETS ORALLY ONCE A DAY TAKING ROBAXIN-750 750 MG TABLET 1 TABLET ORALLY Q8H PRN NOT-TAKING TIZANIDINE HCL 2 MG TABLET 1 TABLET NEEDED ORALLY FOR SPASMS AND PAIN Q 6 HRS MDD3 NOT-TAKING VITAMIN C 1000 MG TABLET CHEWABLE 1 TABLET ORALLY ONCE A DAY MEDICATION LIST REVIEWED AND RECONCILED WITH THE PATIENT PAST MEDICAL HISTORY DIABETES HTN BACK AND NECK PIAN RIGHT SHOULDER PAIN CVA X 2 ASTHMA ACID REFLUX ALLERGIES ENVIRONMENTAL ALLERGIES LYRICA: THROAT TIGHTNESS: ALLERGY STATINS: THROAT TIGHTNESS: ALLERGY SOCIAL HISTORY GENERAL: PAIN CLINIC PFS, CLERGY, PUBLIC HEALTH REFERRALS CLERGY REFERRAL NEEDED?NO WAS THE PROVIDER NOTIFIED OF ANY PERTINENT INFO?NO PFS REFERRAL NEEDED?NO PUBLIC HEALTH REFERRAL NEEDED?NO PATIENT: ____. REVIEW OF SYSTEMS CONSTITUTIONAL: ANY CHANGE IN YOUR MEDICAL CONDITION? NO . CHILLS NO . FEVER NO . INFECTION: DO YOU HAVE NEW INFECTIONS? NO . DO YOU HAVE HISTORY OF MRSA? NO . MUSCULOSKELETAL: ANY NEW PATTERNS OF PAIN OR NUMBNESS? NO . GASTROENTEROLOGY: ANY NEW CHANGE IN BOWEL CONTROL? NO . GENITOURINARY: ANY NEW CHANGE IN BLADDER CONTROL? NO . IS THERE A CHANCE YOU COULD BE ? NO . HEMATOLOGY/LYMPH: DO YOU TAKE ANY BLOOD THINNERS? (FOR EXAMPLE- COUMADIN, PLAVIX, AGGRENOX, PLATEL, PRADAXA, OR XARELTO) YES, PLAVIX . WHEN WAS YOUR LAST DOSE? DATE: TIME: 01/12/17409 . NEUROLOGY: HAVE YOU FALLEN IN THE PAST 6 MONTHS? NO . ANY NEW EXTREMITY NUMBNESS OR WEAKNESS? NO . CARDIOLOGY: DO YOU HAVE A PACEMAKER OR DEFIBRILLATOR? NO . RESPIRATORY: HAVE YOU BEEN SICK IN THE PAST WEEK? NO . FEVER NO . FLU LIKE SYMPTOMS? NO . COUGH NO . INTEGUMENTARY: DO YOU HAVE ANY RASHES OR OPEN SORES? NO . ALLERGIC/IMMUNO: ARE YOU ALLERGIC TO SHELLFISH OR IV DYE? NO . ANY NEW ALLERGIES? NO . PSYCHIATRIC: DO YOU HAVE THOUGHTS OF HURTING YOURSELF OR SOMEONE ELSE? NO . ARE YOU ABUSED, NEGLECTED, OR IN AN UNSAFE ENVIRONMENT? NO . ENDOCRINOLOGY: ARE YOU DIABETIC? YES . OTHER: DO YOU NEED ANY PRESCRIPTIONS? YES . IF YES, PLEASE LIST: ROBAXIN . ANY NEW PROBLEMS WITH YOUR MEDICATIONS? NO . WHEN DID YOU LAST EAT? ____ . WHEN DID YOU LAST DRINK? ____ . WHAT DID YOU LAST DRINK? ____ . NAME OF PERSON DRIVING YOU HOME? ____ . DO YOU HAVE ANY OTHER QUESTIONS OR CONCERNS NO . REVIEWED BY: PROVIDER: KATHIA ESPINOZA . VITAL SIGNS WT 202 LBS, HT 68 IN, BMI 30.71 INDEX, BP 138/72 MM HG, HR 98 /MIN, RR 18 /MIN, TEMP 99 F,1 F, OXYGEN SAT % 96, NA INITIALS KG 903, REVIEWED BY: AD. EXAMINATION GENERAL EXAMINATION: GENERAL APPEARANCE:NO ACUTE DISTRESS. LUNGS:LUNG MORALEZ ARE CLEAR TO AUSCULTATION BILATERALLY. GOOD MOVEMENT OF AIR. HEART:S1, S2 IN A REGULAR RATE AND RHYTHM. NO SIGNIFICANT MURMURS, RUBS OR GALLOPS NOTED. CERVICAL SPINE/NECK: RANGE OF MOTION OF NECK:NORMAL IN ALL DIRECTIONS. MOTOR STRENGTH:NORMAL. VERTEBRAL SPINE TENDERNESS:ABSENT. PARASPINAL MUSCLE SPASM:ABSENT BILATERALLY. TRAPEZIUS TENDERNESS:ABSENT BILATERALLY. 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 PROCEDURE CODES G8730 PAIN ASSESS POS TOOL F/U PLAN DOC G8427 DOC MEDS VERIFIED W/PT OR RE DISPOSITION & COMMUNICATION FOLLOW UP 2 MONTHS ELECTRONICALLY SIGNED BY ALEXIS INGRAM ON 01/12/2017 AT 04:43 PM EDT DISCLAIMER : THIS IS A VISIT SUMMARY EXTRACTED FROM THE [employer] CHART. IT IS NOT A COPY OF THE [employer] PROGRESS NOTE. VICKY
== END ==
LOC: M PAIN 09:00
PROVIDERS: ATTEND Nurse Practitioner Family
DX: M47.22 Other spondylosis with radiculopathy, cervical region (principal); M79.1 Myalgia; Z79.84 Long term (current) use of oral hypoglycemic drugs; Z79.899 Other long term (current) drug therapy; E11.9 Type 2 diabetes mellitus without complications; I10 Essential (primary) hypertension; M54.5 Low back pain; M54.2 Cervicalgia; K21.9 Gastro-esophageal reflux disease without esophagitis; J45.909 Unspecified asthma, uncomplicated; Z88.8 Allergy status to other drugs, medicaments and biological substances; Z91.09 Other allergy status, other than to drugs and biological substances

== ENCOUNTER → 2017-02-08 | Outpatient (CLI) | payer MEDICARE, BC ==
--- NOTE | 2017-03-02 01:03 | ECWPNPC ---
PATIENT NAME: REFUGIO REICH : 1950 GENDER: MALE VISIT DATE: 02/08/2017 DISCHARGE DATE: 02/08/17 1243 VISIT LOCKED DATE TIME: PHYSICIAN: KATHIA ARTEAGA RESOURCE: KATHIA ARTEAGA REASON FOR APPOINTMENT 1. INCREASED PAIN HISTORY OF PRESENT ILLNESS HISTORY OF PRESENT ILLNESS: PATIENT IS SEEN ON AN URGENT BASIS DUE TO INCREASE IN NECK PAIN.WAS DOING WELL AFTER BILATERAL CERVICAL FACET BLOCKS DONE 12-26-16.REPORTING SEVERE DISABLING HEAD PAIN THAT WAS ASSOCIATED WITH HIM PASSING OUT ON 01-27-17.PAIN IS LOCATED OVER OCCIPITAL NERVE ROOTS.RATING PAIN VAS6/10.DENIES RECENT FEVER,ILLNESS OR WEIGHT LOSS.REPORTING NORMAL BOWEL AND BLADDER FUNCTION. PAIN THE PATIENT DESCRIBES THE PAIN... THE PATIENT DESCRIBES THE PAIN... FALL RISK SCREENING: SCREENING :NO FALLS IN THE PAST YEAR :NO FALLS IN THE PAST YEAR SCREENING :NO FALLS IN THE PAST YEAR :NO FALLS IN THE PAST YEAR CURRENT MEDICATIONS TAKING METFORMIN HCL 1000 MG TABLET 1 TABLET WITH MEALS ORALLY TWICE A DAY TAKING LISINOPRIL 40 MG TABLET ORALLY ONCE DAILY TAKING OMEPRAZOLE 40 MG CAPSULE DELAYED RELEASE 1 CAPSULE ORALLY ONCE A DAY TAKING CLOPIDOGREL BISULFATE 75 MG TABLET 1 TABLET ORALLY ONCE A DAY TAKING GLYBURIDE 1.25 MG TABLET 1 TAB ORALLY BID TAKING VITAMIN D-3 1000 UNIT CAPSULE 1 CAPSULE ORALLY BID TAKING POTASSIUM GLUCONATE 595 MG TABLET ORALLY DAILY TAKING GAS-X 125 MG CAPSULE 2 CAPSULE AFTER MEALS AND AT BEDTIME NEEDED ORALLY DAILY TAKING ALLERGY RELIEF 10 MG TABLET 1 TABLET ORALLY ONCE A DAY TAKING PROAIR HFA 108 (90 BASE) MCG/ACT AEROSOL SOLUTION 2 PUFFS NEEDED INHALATION EVERY 4 HRS TAKING QVAR 40 MCG/ACT AEROSOL SOLUTION 1 PUFF INHALATION TWICE A DAY TAKING AMLODIPINE BESYLATE 2.5 MG TABLET 1 TABLET ORALLY ONCE A DAY TAKING VITAMIN B-12 500 MCG TABLET 2 TABLETS ORALLY ONCE A DAY TAKING ROBAXIN-750 750 MG TABLET 1 TABLET ORALLY Q8H PRN NOT-TAKING TIZANIDINE HCL 2 MG TABLET 1 TABLET NEEDED ORALLY FOR SPASMS AND PAIN Q 6 HRS MDD3 NOT-TAKING VITAMIN C 1000 MG TABLET CHEWABLE 1 TABLET ORALLY ONCE A DAY MEDICATION LIST REVIEWED AND RECONCILED WITH THE PATIENT PAST MEDICAL HISTORY DIABETES HTN BACK AND NECK PIAN RIGHT SHOULDER PAIN CVA X 2 ASTHMA ACID REFLUX ASBESTOS EXPOSURE ALLERGIES ENVIRONMENTAL ALLERGIES LYRICA: THROAT TIGHTNESS: ALLERGY STATINS: THROAT TIGHTNESS: ALLERGY SURGICAL HISTORY BACK SURGERIES X5 HEART CATHETERIZATION 2013 HOSPITALIZATION/MAJOR DIAGNOSTIC PROCEDURE BACK SURGERIES REVIEW OF SYSTEMS CONSTITUTIONAL: ANY CHANGE IN YOUR MEDICAL CONDITION? NO, NO . CHILLS NO, NO . FEVER NO, NO . INFECTION: DO YOU HAVE NEW INFECTIONS? NO, NO . DO YOU HAVE HISTORY OF MRSA? NO, NO . MUSCULOSKELETAL: ANY NEW PATTERNS OF PAIN OR NUMBNESS? YES, PT STATES HE HAD BILAT CERVICAL FACET BLOCK 12/26/16. PRE PROCEDURE PT STATES PAIN WAS 6/10, POST PROCEDURE PAIN FREE, THEN PAIN STARTED CREEPING UP TO 8/10 NOW. . GASTROENTEROLOGY: ANY NEW CHANGE IN BOWEL CONTROL? NO, NO . GENITOURINARY: ANY NEW CHANGE IN BLADDER CONTROL? NO, NO . IS THERE A CHANCE YOU COULD BE ? NO, NO . HEMATOLOGY/LYMPH: DO YOU TAKE ANY BLOOD THINNERS? (FOR EXAMPLE- COUMADIN, PLAVIX, AGGRENOX, PLATEL, PRADAXA, OR XARELTO) YES, PLAVIX . WHEN WAS YOUR LAST DOSE? DATE: TIME: , DATE: TIME: . NEUROLOGY: HAVE YOU FALLEN IN THE PAST 6 MONTHS? NO, NO . ANY NEW EXTREMITY NUMBNESS OR WEAKNESS? NO, NO . CARDIOLOGY: DO YOU HAVE A PACEMAKER OR DEFIBRILLATOR? NO, NO . RESPIRATORY: HAVE YOU BEEN SICK IN THE PAST WEEK? NO, NO . FEVER NO, NO . FLU LIKE SYMPTOMS? NO, NO . COUGH NO, NO . INTEGUMENTARY: DO YOU HAVE ANY RASHES OR OPEN SORES? NO, NO . ALLERGIC/IMMUNO: ARE YOU ALLERGIC TO SHELLFISH OR IV DYE? NO, NO . ANY NEW ALLERGIES? NO, NO . PSYCHIATRIC: DO YOU HAVE THOUGHTS OF HURTING YOURSELF OR SOMEONE ELSE? NO, NO . ARE YOU ABUSED, NEGLECTED, OR IN AN UNSAFE ENVIRONMENT? NO, NO . ENDOCRINOLOGY: ARE YOU DIABETIC? YES . OTHER: DO YOU NEED ANY PRESCRIPTIONS? NO, NO . IF YES, PLEASE LIST: ____, ____ . ANY NEW PROBLEMS WITH YOUR MEDICATIONS? NO, NO . WHEN DID YOU LAST EAT? ____, ____ . WHEN DID YOU LAST DRINK? ____, ____ . WHAT DID YOU LAST DRINK? ____, ____ . NAME OF PERSON DRIVING YOU HOME? ____, ____ . DO YOU HAVE ANY OTHER QUESTIONS OR CONCERNS NO, NO . REVIEWED BY: PROVIDER: , KATHIA ESPINOZA . VITAL SIGNS WT 202.0 LBS, HT 68 IN, BMI 30.71 INDEX, BP 158/71 MM HG, HR 84 /MIN, RR 16 /MIN, TEMP 97.8 F, OXYGEN SAT % 96%, SAFE IN ENV? (Y/N) Y, NA INITIALS TL 1134, REVIEWED BY: EM. EXAMINATION GENERAL EXAMINATION: LUNGS:LUNG SOUNDS ARE CLEAR. HEART:HEART RATE REGULAR. MUSCULOSKELETAL:*, MUSCLE STRENGTH TESTING 5/5 BILATERAL UPPER EXTREMITIES.PALPATION: POSITIVE FOR PAIN OVER C SPINE. POSITIVE FOR PAIN OVER C PARASPINALS, SPECIFIC TENDERNESS OVER C2/3-C3/4 CERVICAL FACET REGION WITH PALPATION.POINT TENDERNESS OVER BILATERAL OCCIPITAL NERVE ROUTES.. DIAGNOSTIC:MRI [id number].. 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 PROCEDURE CODES FA211 ESTABILISHED PATIENT [facility] FACILITY CHARGE G8730 PAIN ASSESS POS TOOL F/U PLAN DOC G8427 DOC MEDS VERIFIED W/PT OR RE DISPOSITION & COMMUNICATION FOLLOW UP 2WK POST (REASON: C4/5 RAVINDER) ELECTRONICALLY SIGNED BY ALEXIS INGRAM ON 03/01/2017 AT 02:11 PM EDT DISCLAIMER : THIS IS A VISIT SUMMARY EXTRACTED FROM THE [employer] CHART. IT IS NOT A COPY OF THE [employer] PROGRESS NOTE. [facility]
== END ==
LOC: M PAIN 11:00
PROVIDERS: ATTEND Nurse Practitioner Family
DX: M47.22 Other spondylosis with radiculopathy, cervical region (principal); M79.1 Myalgia; M50.023 Cervical disc disorder at C6-C7 level with myelopathy; M47.812 Spondylosis without myelopathy or radiculopathy, cervical region; E11.9 Type 2 diabetes mellitus without complications; I10 Essential (primary) hypertension; J45.909 Unspecified asthma, uncomplicated; K21.9 Gastro-esophageal reflux disease without esophagitis; Z79.899 Other long term (current) drug therapy; Z79.84 Long term (current) use of oral hypoglycemic drugs; J30.9 Allergic rhinitis, unspecified; Z88.8 Allergy status to other drugs, medicaments and biological substances; Z77.090 Contact with and (suspected) exposure to asbestos

== ENCOUNTER → 2017-02-16 | Outpatient (CLI) | payer MEDICARE, BC ==
[~2017-02-16] MED LIST changes: +ISOVUE-M 300 61% 15ML VIAL (Q9967) As Ordered ONE; +LIDOCAINE 1% SDV INJ 30 ML VIAL As Ordered ONE; +diazePAM 5 MG TAB As Ordered ONE; +methylPREDNISolone SUSP 40 MG/ML (DEPO-medrol) VIAL (J1030) As Ordered ONE; +oxyCODONE 5MG TAB As Ordered ONE
--- NOTE | 2017-02-26 23:39 | ECWPNPC ---
PATIENT NAME: REFUGIO REICH : 1950 GENDER: MALE VISIT DATE: 02/16/2017 DISCHARGE DATE: 02/16/17 1235 VISIT LOCKED DATE TIME: PHYSICIAN: EFFIE ROMAN RESOURCE: EFFIE ROMAN REASON FOR APPOINTMENT 1. CESB HISTORY OF PRESENT ILLNESS HISTORY OF PRESENT ILLNESS: PAIN THE PATIENT DESCRIBES THE PAIN... FALL RISK SCREENING: SCREENING :NO FALLS IN THE PAST YEAR CURRENT MEDICATIONS TAKING METFORMIN HCL 1000 MG TABLET 1 TABLET WITH MEALS ORALLY TWICE A DAY, NOTES: 02/15/172299 TAKING LISINOPRIL 40 MG TABLET ORALLY ONCE DAILY, NOTES: 02/16/17599 TAKING OMEPRAZOLE 40 MG CAPSULE DELAYED RELEASE 1 CAPSULE ORALLY ONCE A DAY, NOTES: 02/16/17599 TAKING CLOPIDOGREL BISULFATE 75 MG TABLET 1 TABLET ORALLY ONCE A DAY, NOTES: 7 DAYS AGO TAKING VITAMIN D-3 1000 UNIT CAPSULE 1 CAPSULE ORALLY BID, NOTES: 02/16/17599 TAKING POTASSIUM GLUCONATE 595 MG TABLET ORALLY DAILY, NOTES: 02/16/17599 TAKING GAS-X 125 MG CAPSULE 2 CAPSULE AFTER MEALS AND AT BEDTIME NEEDED ORALLY DAILY, NOTES: 02/15/172299 TAKING ALLERGY RELIEF 10 MG TABLET 1 TABLET ORALLY ONCE A DAY, NOTES: 02/16/17599 TAKING PROAIR HFA 108 (90 BASE) MCG/ACT AEROSOL SOLUTION 2 PUFFS NEEDED INHALATION EVERY 4 HRS, NOTES: NONE RECENT TAKING QVAR 40 MCG/ACT AEROSOL SOLUTION 1 PUFF INHALATION TWICE A DAY, NOTES: 02/16/17599 TAKING AMLODIPINE BESYLATE 2.5 MG TABLET 1 TABLET ORALLY ONCE A DAY, NOTES: 02/16/17599 TAKING VITAMIN B-12 500 MCG TABLET 2 TABLETS ORALLY ONCE A DAY, NOTES: 02/16/17599 TAKING GLYBURIDE 1.25 MG TABLET 1 TAB ORALLY BID, NOTES: 02/15/172299 TAKING ROBAXIN-750 750 MG TABLET 1 TABLET ORALLY Q8H TID, NOTES: 02/16/17599 NOT-TAKING TIZANIDINE HCL 2 MG TABLET 1 TABLET NEEDED ORALLY FOR SPASMS AND PAIN Q 6 HRS MDD3 NOT-TAKING VITAMIN C 1000 MG TABLET CHEWABLE 1 TABLET ORALLY ONCE A DAY MEDICATION LIST REVIEWED AND RECONCILED WITH THE PATIENT PAST MEDICAL HISTORY DIABETES HTN BACK AND NECK PIAN RIGHT SHOULDER PAIN CVA X 2 ASTHMA ACID REFLUX ASBESTOS EXPOSURE ALLERGIES ENVIRONMENTAL ALLERGIES LYRICA: THROAT TIGHTNESS: ALLERGY STATINS: THROAT TIGHTNESS: ALLERGY SURGICAL HISTORY BACK SURGERIES X5 HEART CATHETERIZATION 2013 HOSPITALIZATION/MAJOR DIAGNOSTIC PROCEDURE BACK SURGERIES REVIEW OF SYSTEMS CONSTITUTIONAL: ANY CHANGE IN YOUR MEDICAL CONDITION? YES, MRI OF BRAIN YEST. IN [place]. PELIMINARY REPORT--NO ACUTE DISEASE, . CHILLS NO . FEVER NO . INFECTION: DO YOU HAVE NEW INFECTIONS? NO . DO YOU HAVE HISTORY OF MRSA? NO . MUSCULOSKELETAL: ANY NEW PATTERNS OF PAIN OR NUMBNESS? NO . GASTROENTEROLOGY: ANY NEW CHANGE IN BOWEL CONTROL? NO . GENITOURINARY: ANY NEW CHANGE IN BLADDER CONTROL? NO . IS THERE A CHANCE YOU COULD BE ? NO . HEMATOLOGY/LYMPH: DO YOU TAKE ANY BLOOD THINNERS? (FOR EXAMPLE- COUMADIN, PLAVIX, AGGRENOX, PLATEL, PRADAXA, OR XARELTO) YES, PLAVIX . WHEN WAS YOUR LAST DOSE? DATE: TIME: 02/09/17 0600 . NEUROLOGY: HAVE YOU FALLEN IN THE PAST 6 MONTHS? NO . ANY NEW EXTREMITY NUMBNESS OR WEAKNESS? NO . CARDIOLOGY: DO YOU HAVE A PACEMAKER OR DEFIBRILLATOR? NO . RESPIRATORY: HAVE YOU BEEN SICK IN THE PAST WEEK? NO . FEVER NO . FLU LIKE SYMPTOMS? NO . COUGH NO . INTEGUMENTARY: DO YOU HAVE ANY RASHES OR OPEN SORES? NO . ALLERGIC/IMMUNO: ARE YOU ALLERGIC TO SHELLFISH OR IV DYE? NO . ANY NEW ALLERGIES? NO . PSYCHIATRIC: DO YOU HAVE THOUGHTS OF HURTING YOURSELF OR SOMEONE ELSE? NO . ARE YOU ABUSED, NEGLECTED, OR IN AN UNSAFE ENVIRONMENT? NO . ENDOCRINOLOGY: ARE YOU DIABETIC? YES, FSBS 122 @ 0700 02/16/17 . OTHER: DO YOU NEED ANY PRESCRIPTIONS? NO . IF YES, PLEASE LIST: ____ . ANY NEW PROBLEMS WITH YOUR MEDICATIONS? NO . WHEN DID YOU LAST EAT? 02/15/17 1730 . WHEN DID YOU LAST DRINK? 02/16/17 0830 . WHAT DID YOU LAST DRINK? WATER . NAME OF PERSON DRIVING YOU HOME? -ROJAS . DO YOU HAVE ANY OTHER QUESTIONS OR CONCERNS NO . REVIEWED BY: PROVIDER: . VITAL SIGNS WT 202.0 LBS, HT 68 IN, BMI 30.71 INDEX, BP 163/74 MM HG, HR 86 /MIN, RR 16 /MIN, TEMP 97.3 F, OXYGEN SAT % 94%, NA INITIALS TL 1044, REVIEWED BY: AD. 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 POST PROCEDURE DIAGNOSIS OCCIPITAL NEURALGIA. PROCEDURE BILATERAL GREATER OCCIPITAL NERVE BLOCK SURGEON DR. EFFIE ROMAN SITE SAFETY COORDINATOR NONE ANESTHESIA LOCAL PRE PROCEDURE NOTE 66 YEAR-OLD PATIENT WITH HISTORY OF CHRONIC OCCIPITAL PAIN. THE PAIN IS LOCATED OVER THE OCCIPITAL AREA WITH RADIATION TOWARDS THE PARIETAL AREA OF THE CRANIUM. I EVALUATED THE PATIENT AND REVIEWED THE CHART. I WENT OVER THE RISKS, ALTERNATIVES, AND BENEFITS ASSOCIATED WITH THIS PROCEDURE. THE PATIENT WOULD LIKE TO PROCEED AND GAVE CONSENT TO PERFORM THE PROCEDURE. THE PATIENT DENIES UNEXPLAINABLE WEIGHT LOSS, FEVER, CHILLS, OR NEW CHANGES IN URINARY OR BOWEL CONTROL. DESCRIPTION OF PROCEDURE THE PATIENT WAS BROUGHT TO THE PROCEDURE ROOM AND PLACED IN THE SITTING POSITION. THE RIGHT AND LEFT OCCIPITAL AREA WAS CLEANED WITH ALCOHOL. THE PROCEDURE WAS DONE USING STERILE TECHNIQUES. I CHECKED LATERALITY AND THE LEVEL WHERE THE PROCEDURE WAS GOING TO BE PERFORMED WITH THE PATIENT AND THE SUPPORTING STAFF AT THE MOMENT OF THE TIME OUT IN THE PROCEDURE ROOM. USING A 25-GAUGE NEEDLE, THE RIGHT AND LEFT OCCIPITAL NERVE WAS INJECTED AT THE NUCHAL LINE, 1-INCH LATERAL OF MIDLINE. I USED A TOTAL OF 15 ML OF BUPIVACAINE 0.25% WITH KENALOG 20 MG AT EACH NERVE. THERE WAS NO EVIDENCE OF BLOOD, PARESTHESIA OR CEREBROSPINAL FLUID DURING THE PROCEDURE. THE PATIENT WAS SENT TO THE RECOVERY ROOM. THE PATIENT WAS MOVING THE EXTREMITIES AND DOING WELL. THERE WAS NO COMPLICATION DURING THE PROCEDURE. POST PROCEDURE NOTE THE PATIENT WILL BE SEEN IN A FOLLOW UP IN THE NEXT FEW WEEKS. INSTRUCTIONS WERE GIVEN, QUESTIONS WERE ANSWERED, AND THE PATIENT EXPRESSED UNDERSTANDING AND AGREED WITH THE PLAN. I, ALANNA HART, DOCUMENTED THE ABOVE INFORMATION ACTING A SCRIBE FOR DR. ROMAN. I HAVE REVIEWED THE ABOVE DOCUMENT, WRITTEN BY ALANNA MOTTA AND I VERIFY THAT IT IS ACCURATE PROCEDURE CODES 25791 N BLOCK INJ OCCIPITAL DISPOSITION & COMMUNICATION FOLLOW UP 3 WEEKS ELECTRONICALLY SIGNED BY EFFIE ROMAN MD ON 02/26/2017 AT 07:06 PM EDT DISCLAIMER : THIS IS A VISIT SUMMARY EXTRACTED FROM THE [email or web address] CHART. IT IS NOT A COPY OF THE [email or web address] PROGRESS NOTE. [facility]
== END ==
LOC: M PAIN 11:00
PROVIDERS: ATTEND Anesthesiology
DX: G89.29 Other chronic pain (principal); M54.81 Occipital neuralgia; Z79.84 Long term (current) use of oral hypoglycemic drugs; Z79.899 Other long term (current) drug therapy
CPT/HCPCS: 64405; J3301

== ENCOUNTER → 2017-03-06 | Outpatient (CLI) | payer MEDICARE, BC ==
--- NOTE | 2017-03-07 01:50 | ECWPNPC ---
PATIENT NAME: REFUGIO REICH : 1950 GENDER: MALE VISIT DATE: 03/06/2017 DISCHARGE DATE: 03/06/17 1114 VISIT LOCKED DATE TIME: PHYSICIAN: KATHIA ARTEAGA RESOURCE: KATHIA ARTEAGA REASON FOR APPOINTMENT 1. POST PROC HISTORY OF PRESENT ILLNESS HISTORY OF PRESENT ILLNESS: HERE FOR POST PROCEDURE F/U.HAD BILATERAL OCCIPITAL NERVE BLOCK ON February. PAIN THE PATIENT DESCRIBES THE PAIN... FALL RISK SCREENING: SCREENING :NO FALLS IN THE PAST YEAR CURRENT MEDICATIONS TAKING METFORMIN HCL 1000 MG TABLET 1 TABLET WITH MEALS ORALLY TWICE A DAY, NOTES: 02/15/172299 TAKING LISINOPRIL 40 MG TABLET ORALLY ONCE DAILY, NOTES: 02/16/17599 TAKING OMEPRAZOLE 40 MG CAPSULE DELAYED RELEASE 1 CAPSULE ORALLY ONCE A DAY, NOTES: 02/16/17599 TAKING CLOPIDOGREL BISULFATE 75 MG TABLET 1 TABLET ORALLY ONCE A DAY, NOTES: 7 DAYS AGO TAKING VITAMIN D-3 1000 UNIT CAPSULE 1 CAPSULE ORALLY BID, NOTES: 02/16/17599 TAKING POTASSIUM GLUCONATE 595 MG TABLET ORALLY DAILY, NOTES: 02/16/17599 TAKING GAS-X 125 MG CAPSULE 2 CAPSULE AFTER MEALS AND AT BEDTIME NEEDED ORALLY DAILY, NOTES: 02/15/172299 TAKING ALLERGY RELIEF 10 MG TABLET 1 TABLET ORALLY ONCE A DAY, NOTES: 02/16/17599 TAKING PROAIR HFA 108 (90 BASE) MCG/ACT AEROSOL SOLUTION 2 PUFFS NEEDED INHALATION EVERY 4 HRS, NOTES: NONE RECENT TAKING QVAR 40 MCG/ACT AEROSOL SOLUTION 1 PUFF INHALATION TWICE A DAY, NOTES: 02/16/17599 TAKING AMLODIPINE BESYLATE 2.5 MG TABLET 1 TABLET ORALLY ONCE A DAY, NOTES: 02/16/17599 TAKING VITAMIN B-12 500 MCG TABLET 2 TABLETS ORALLY ONCE A DAY, NOTES: 02/16/17599 TAKING GLYBURIDE 1.25 MG TABLET 1 TAB ORALLY BID, NOTES: 02/15/172299 TAKING ROBAXIN-750 750 MG TABLET 1 TABLET ORALLY Q8H TID, NOTES: 02/16/17599 NOT-TAKING TIZANIDINE HCL 2 MG TABLET 1 TABLET NEEDED ORALLY FOR SPASMS AND PAIN Q 6 HRS MDD3 NOT-TAKING VITAMIN C 1000 MG TABLET CHEWABLE 1 TABLET ORALLY ONCE A DAY MEDICATION LIST REVIEWED AND RECONCILED WITH THE PATIENT PAST MEDICAL HISTORY DIABETES HTN BACK AND NECK PIAN RIGHT SHOULDER PAIN CVA X 2 ASTHMA ACID REFLUX ASBESTOS EXPOSURE ALLERGIES ENVIRONMENTAL ALLERGIES LYRICA: THROAT TIGHTNESS: ALLERGY STATINS: THROAT TIGHTNESS: ALLERGY SURGICAL HISTORY BACK SURGERIES X5 HEART CATHETERIZATION 2013 HOSPITALIZATION/MAJOR DIAGNOSTIC PROCEDURE BACK SURGERIES REVIEW OF SYSTEMS CONSTITUTIONAL: ANY CHANGE IN YOUR MEDICAL CONDITION? NO . CHILLS NO . FEVER NO . INFECTION: DO YOU HAVE NEW INFECTIONS? NO . DO YOU HAVE HISTORY OF MRSA? NO . MUSCULOSKELETAL: ANY NEW PATTERNS OF PAIN OR NUMBNESS? NO . GASTROENTEROLOGY: ANY NEW CHANGE IN BOWEL CONTROL? NO . GENITOURINARY: ANY NEW CHANGE IN BLADDER CONTROL? NO . IS THERE A CHANCE YOU COULD BE ? NO . HEMATOLOGY/LYMPH: DO YOU TAKE ANY BLOOD THINNERS? (FOR EXAMPLE- COUMADIN, PLAVIX, AGGRENOX, PLATEL, PRADAXA, OR XARELTO) YES, PLAVIX . WHEN WAS YOUR LAST DOSE? DATE: TIME: . NEUROLOGY: HAVE YOU FALLEN IN THE PAST 6 MONTHS? NO . ANY NEW EXTREMITY NUMBNESS OR WEAKNESS? NO . CARDIOLOGY: DO YOU HAVE A PACEMAKER OR DEFIBRILLATOR? NO . RESPIRATORY: HAVE YOU BEEN SICK IN THE PAST WEEK? NO . FEVER NO . FLU LIKE SYMPTOMS? NO . COUGH NO . INTEGUMENTARY: DO YOU HAVE ANY RASHES OR OPEN SORES? NO . ALLERGIC/IMMUNO: ARE YOU ALLERGIC TO SHELLFISH OR IV DYE? NO . ANY NEW ALLERGIES? NO . PSYCHIATRIC: DO YOU HAVE THOUGHTS OF HURTING YOURSELF OR SOMEONE ELSE? NO . ARE YOU ABUSED, NEGLECTED, OR IN AN UNSAFE ENVIRONMENT? NO . ENDOCRINOLOGY: ARE YOU DIABETIC? YES . OTHER: DO YOU NEED ANY PRESCRIPTIONS? NO . IF YES, PLEASE LIST: ____ . ANY NEW PROBLEMS WITH YOUR MEDICATIONS? NO . WHEN DID YOU LAST EAT? ____ . WHEN DID YOU LAST DRINK? ____ . WHAT DID YOU LAST DRINK? ____ . NAME OF PERSON DRIVING YOU HOME? ____ . DO YOU HAVE ANY OTHER QUESTIONS OR CONCERNS NO . REVIEWED BY: PROVIDER: . VITAL SIGNS WT 203.4 LBS, HT 68 IN, BMI 30.92 INDEX, BP 143/69 MM HG, HR 85 /MIN, RR 16 /MIN, TEMP 97.7 F, OXYGEN SAT % 94%, SAFE IN ENV? (Y/N) Y, NA INITIALS TL 1044, REVIEWED BY: EM. EXAMINATION GENERAL EXAMINATION: LUNGS:LUNG SOUNDS ARE CLEAR. HEART:HEART RATE REGULAR. MUSCULOSKELETAL:*, MUSCLE STRENGTH TESTING 5/5 BILATERAL UPPER EXTREMITIES. SPECIFIC TENDERNESS OVER C2/3-C3/4 CERVICAL FACET REGION WITH PALPATION. MILD TENDERNESS OVER BILATERAL OCCIPITAL NERVE ROUTES.. DIAGNOSTIC:MRI [id number].MRI BRAIN-02/15/17-REVIEWED AND WNL. 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 TREATMENT OSTEOARTHRITIS OF SPINE WITH RADICULOPATHY, CERVICAL REGION REFILL ROBAXIN-750 TABLET, 750 MG, 1 TABLET, ORALLY, Q8H TID, 90 DAY(S), 270, REFILLS 1, NOTES: 02/16/17 0600 PROCEDURE CODES FA211 ESTABILISHED PATIENT [facility] FACILITY CHARGE G8783 BP SCR PRFRM RCMDD DEFIND SCR INTVL G8730 PAIN ASSESS POS TOOL F/U PLAN DOC 3016F PT SCRND [place] USE 1123F ACP DISCUSS/DSCN MKR DOCD 1036F TOBACCO NON-USER 0518F FALL PLAN OF CARE DOCD G8427 DOC MEDS VERIFIED W/PT OR RE G8417 BMI >=30 CALCUATE W/FOLLOWUP 3288F FALL RISK ASSESSMENT DOCD DISPOSITION & COMMUNICATION FOLLOW UP 3 MONTHS ELECTRONICALLY SIGNED BY ALEXIS INGRAM ON 03/06/2017 AT 11:25 AM EDT DISCLAIMER : THIS IS A VISIT SUMMARY EXTRACTED FROM THE [employer] CHART. IT IS NOT A COPY OF THE [employer] PROGRESS NOTE. MTDD
== END ==
LOC: M PAIN 10:20
PROVIDERS: ATTEND Nurse Practitioner Family
DX: M47.22 Other spondylosis with radiculopathy, cervical region (principal); M79.1 Myalgia; M47.812 Spondylosis without myelopathy or radiculopathy, cervical region; M54.81 Occipital neuralgia; Z79.899 Other long term (current) drug therapy; J30.9 Allergic rhinitis, unspecified; Z88.8 Allergy status to other drugs, medicaments and biological substances

== ENCOUNTER → 2017-06-06 | Outpatient (CLI) | payer MEDICARE, BC ==
--- NOTE | 2017-06-26 01:06 | ECWPNPC ---
PATIENT NAME: REFUGIO REICH : 1950 GENDER: MALE VISIT DATE: 06/06/2017 DISCHARGE DATE: 06/06/17 1136 VISIT LOCKED DATE TIME: PHYSICIAN: KATHIA ARTEAGA RESOURCE: KATHIA ARTEAGA REASON FOR APPOINTMENT 1. NECK HISTORY OF PRESENT ILLNESS HISTORY OF PRESENT ILLNESS: HERE FOR POST PROCEDURE F/U.HAD BILATERAL OCCIPITAL NERVE BLOCK ON February.REPORTED 100% IMPROVEMENT IN PAIN THAT CONTINUES TODAY.USING ROBAXIN 750MG PRN WITH GOOD EFFECT.DENIES SIDE EFFECTS.DISCUSSED MEDICATION AND TREATMENT OPTIONS.PRIMARY CARE CLOSER TO HOME HAS AGREED TO PRESCRIBE ROBAXIN AND PATIENT WILL CALL IF CONDITION CHANGES FOR REEVALUATION.RATING PAIN VAS 0/10. PAIN THE PATIENT DESCRIBES THE PAIN... THE PATIENT DESCRIBES THE PAIN... FALL RISK SCREENING: SCREENING :NO FALLS IN THE PAST YEAR CURRENT MEDICATIONS TAKING METFORMIN HCL 1000 MG TABLET 1 TABLET WITH MEALS ORALLY TWICE A DAY TAKING LISINOPRIL 40 MG TABLET ORALLY ONCE DAILY TAKING OMEPRAZOLE 40 MG CAPSULE DELAYED RELEASE 1 CAPSULE ORALLY ONCE A DAY TAKING CLOPIDOGREL BISULFATE 75 MG TABLET 1 TABLET ORALLY ONCE A DAY TAKING VITAMIN D-3 1000 UNIT CAPSULE 1 CAPSULE ORALLY BID TAKING POTASSIUM GLUCONATE 595 MG TABLET ORALLY DAILY TAKING GAS-X 125 MG CAPSULE 2 CAPSULE AFTER MEALS AND AT BEDTIME NEEDED ORALLY DAILY TAKING ALLERGY RELIEF 10 MG TABLET 1 TABLET ORALLY ONCE A DAY TAKING PROAIR HFA 108 (90 BASE) MCG/ACT AEROSOL SOLUTION 2 PUFFS NEEDED INHALATION EVERY 4 HRS TAKING QVAR 40 MCG/ACT AEROSOL SOLUTION 1 PUFF INHALATION TWICE A DAY TAKING AMLODIPINE BESYLATE 2.5 MG TABLET 1 TABLET ORALLY ONCE A DAY TAKING VITAMIN B-12 500 MCG TABLET 2 TABLETS ORALLY ONCE A DAY TAKING GLYBURIDE 1.25 MG TABLET 1 TAB ORALLY BID TAKING ROBAXIN-750 750 MG TABLET 1 TABLET ORALLY Q8H TID NOT-TAKING TIZANIDINE HCL 2 MG TABLET 1 TABLET NEEDED ORALLY FOR SPASMS AND PAIN Q 6 HRS MDD3 NOT-TAKING VITAMIN C 1000 MG TABLET CHEWABLE 1 TABLET ORALLY ONCE A DAY MEDICATION LIST REVIEWED AND RECONCILED WITH THE PATIENT PAST MEDICAL HISTORY DIABETES HTN BACK AND NECK PIAN RIGHT SHOULDER PAIN CVA X 2 ASTHMA ACID REFLUX ASBESTOS EXPOSURE ALLERGIES ENVIRONMENTAL ALLERGIES LYRICA: THROAT TIGHTNESS: ALLERGY STATINS: THROAT TIGHTNESS: ALLERGY SOCIAL HISTORY GENERAL: TOBACCO USE ARE YOU A:FORMER SMOKER HOW LONG HAS IT BEEN SINCE YOU LAST SMOKED?> 10 YEARS [employer] [id number] SPOKEN:SAMMARINESE LEARNING BARRIERS / SPECIAL NEEDS BARRIERS TO LEARNING?NO HEARING IMPAIRED?YES VISION IMPAIRED?YES :CORRECTIVE LENSES COGNITIVELY IMPAIRED?NO READINESS TO LEARN?YES LEARNING PREFERENCES?NO LEARNING CAPABILITIES PRESENT?YES EMOTIONAL BARRIERS?NO SPECIAL DEVICES?NO SALES TEAM MEMBER NEEDED?YES PAIN CLINIC PFS, CLERGY, PUBLIC HEALTH REFERRALS PFS REFERRAL NEEDED?NO CLERGY REFERRAL NEEDED?NO PUBLIC HEALTH REFERRAL NEEDED?NO WAS THE PROVIDER NOTIFIED OF ANY PERTINENT INFO?NO HAS THE PATIENT BEEN EDUCATED REGARDING HIS/HER PLAN OF CARE?YES HAS THE PATIENT BEEN EDUCATED REGARDING PAIN, THE RISK FOR PAIN, THE IMPORTANCE OF EFFECTIVE PAIN MANAGEMENT, AND THE PAIN ASSESSMENT PROCESS?YES PATIENT: ____. 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 MONTSE ROBERTSTavon PHONE # OF POA? [phone] DO YOU HAVE A COPY WITH YOU?NO HAVE YOU HAD A COPY OF ANY ADVANCED DIRECTIVE (LISTED ABOVE) ON A PREVIOUS MEDICAL RECORDS AT [facility]?YES REVIEW OF SYSTEMS REVIEWED BY: PROVIDER: KATHIA ESPINOZA . CONSTITUTIONAL: ANY CHANGE IN YOUR MEDICAL CONDITION? NO . CHILLS NO . FEVER NO . INFECTION: DO YOU HAVE NEW INFECTIONS? NO . DO YOU HAVE HISTORY OF MRSA? NO . MUSCULOSKELETAL: ANY NEW PATTERNS OF PAIN OR NUMBNESS? NO . GASTROENTEROLOGY: ANY NEW CHANGE IN BOWEL CONTROL? NO . GENITOURINARY: ANY NEW CHANGE IN BLADDER CONTROL? NO . IS THERE A CHANCE YOU COULD BE ? NO . HEMATOLOGY/LYMPH: DO YOU TAKE ANY BLOOD THINNERS? (FOR EXAMPLE- COUMADIN, PLAVIX, AGGRENOX, PLATEL, PRADAXA, OR XARELTO) YES, PLAVIX . WHEN WAS YOUR LAST DOSE? DATE:06/06/17 TIME: AM . NEUROLOGY: HAVE YOU FALLEN IN THE PAST 6 MONTHS? NO . ANY NEW EXTREMITY NUMBNESS OR WEAKNESS? NO . CARDIOLOGY: DO YOU HAVE A PACEMAKER OR DEFIBRILLATOR? NO . RESPIRATORY: HAVE YOU BEEN SICK IN THE PAST WEEK? NO . FEVER NO . FLU LIKE SYMPTOMS? NO . COUGH NO . INTEGUMENTARY: DO YOU HAVE ANY RASHES OR OPEN SORES? NO . ALLERGIC/IMMUNO: ARE YOU ALLERGIC TO SHELLFISH OR IV DYE? NO . ANY NEW ALLERGIES? NO . PSYCHIATRIC: DO YOU HAVE THOUGHTS OF HURTING YOURSELF OR SOMEONE ELSE? NO . ARE YOU ABUSED, NEGLECTED, OR IN AN UNSAFE ENVIRONMENT? NO . ENDOCRINOLOGY: ARE YOU DIABETIC? NO . OTHER: DO YOU NEED ANY PRESCRIPTIONS? NO . IF YES, PLEASE LIST: ____ . ANY NEW PROBLEMS WITH YOUR MEDICATIONS? NO . WHEN DID YOU LAST EAT? ____ . WHEN DID YOU LAST DRINK? ____ . WHAT DID YOU LAST DRINK? ____ . NAME OF PERSON DRIVING YOU HOME? ____ . DO YOU HAVE ANY OTHER QUESTIONS OR CONCERNS NO . VITAL SIGNS WT 205 LBS, HT 68 IN, BMI 31.17 INDEX, BP 141/80 MM HG, HR 84 /MIN, RR 16 /MIN, TEMP 98.0 F, OXYGEN SAT % 95%, NA INITIALS AW 1058, REVIEWED BY: BETH. EXAMINATION GENERAL EXAMINATION: LUNGS:LUNG SOUNDS ARE CLEAR. HEART:HEART RATE REGULAR. MUSCULOSKELETAL:*, MUSCLE STRENGTH TESTING 5/5 BILATERAL UPPER EXTREMITIES. NON TENDER OVER C2/3-C3/4 CERVICAL FACET REGION WITH PALPATION. NON TENDER OVER BILATERAL OCCIPITAL NERVE ROUTES.. DIAGNOSTIC:MRI [id number]. MRI BRAIN-02/15/17-REVIEWED AND WNL. 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 PROCEDURE CODES FA211 ESTABILISHED PATIENT [facility] FACILITY CHARGE G8730 PAIN ASSESS POS TOOL F/U PLAN DOC G8427 DOC MEDS VERIFIED W/PT OR RE DISPOSITION & COMMUNICATION FOLLOW UP NO F/U NECESSARY ELECTRONICALLY SIGNED BY ALEXIS INGRAM ON 06/20/2017 AT 07:39 PM EDT DISCLAIMER : THIS IS A VISIT SUMMARY EXTRACTED FROM THE [employer] CHART. IT IS NOT A COPY OF THE [employer] PROGRESS NOTE. MTDD
== END ==
LOC: M PAIN 10:45
PROVIDERS: ATTEND Nurse Practitioner Family
DX: M47.22 Other spondylosis with radiculopathy, cervical region (principal); M79.1 Myalgia; E11.9 Type 2 diabetes mellitus without complications; I10 Essential (primary) hypertension; Z79.84 Long term (current) use of oral hypoglycemic drugs; Z79.899 Other long term (current) drug therapy; Z87.891 Personal history of nicotine dependence; J30.9 Allergic rhinitis, unspecified; Z88.8 Allergy status to other drugs, medicaments and biological substances